=== PATIENT | female | born 1980 | race Caucasian/White ===

== ENCOUNTER 2022-03-02 17:41 | Inpatient (IN) | payer BC ==
[2022-03-02 17:45] VITALS: BMI 38.5
[2022-03-02] MEDS ORDERED: ACETAMINOPHEN 325 MG TABLET (FP) PO ONE (18:40)
[2022-03-02] MEDS ORDERED: ONDANSETRON 4 MG/2 ML VIAL IVPUSH ONE ×2 (18:45→21:34)
[2022-03-02] MEDS ORDERED: ONDANSETRON 4 MG/2 ML VIAL ONE ×2 (19:04→21:35)
[2022-03-02] MEDS ORDERED: ACETAMINOPHEN INJECTION 100 ML IVPB ONE (19:04)
[2022-03-02] MEDS ORDERED: ACETAMINOPHEN 1000 MG/100 ML BAG IVPB ONE (19:05)
[2022-03-02 19:26] LABS: BASO % 0.2 % (0-2.0); EOS % 0.2 % (0-4.5); HEMATOCRIT 38.6 % (32.4-45.2); LYMPH % 9.9 % (8-40); MCH 28.8 pg (25.7-33.7); MCHC 33.7 g/dl (32.0-36.0); MEAN CELL VOLUME 85.6 fl (80-96); MEAN PLT VOLUME 7.3 fl (7.5-11.1); MONO % 2.4 % (3.8-10.2); NEUT % 87.3 % (42.8-82.8); PLATELET COUNT 278 10^3/uL (134-434); RBC 4.51 M/mm3 (3.60-5.2); RDW 14.4 % (11.6-15.6); WHITE BLOOD COUNT 13.2 K/mm3 (4.0-10.0)
[2022-03-02 19:31] LABS: EPI CELLS 10 /uL (0-25.1); HYALINE CASTS 2 /uL (0-3.1); URINE APPEARANCE CLEAR; URINE BACTERIA 2821 /uL (0-1359); URINE BILIRUBIN NEGATIVE (NEGATIVE); URINE COLOR YELLOW; URINE GLUCOSE (UA) NEGATIVE (NEGATIVE); URINE KETONE 1+ (NEGATIVE); URINE LEUK ESTERASE NEGATIVE (NEGATIVE); URINE NITRITE NEGATIVE (NEGATIVE); URINE PROTEIN NEGATIVE (NEGATIVE)
[2022-03-02] MEDS ORDERED: KETOROLAC TROMETHAMINE 15 MG/ML VIAL IVPUSH ONE ×2 (19:40→21:30)
[2022-03-02 19:44] LABS: CALCIUM 8.8 mg/dL (8.5-10.1)
[2022-03-02 19:45] LABS: ALBUMIN 4.1 g/dl (3.4-5.0); BLOOD UREA NITROGEN 14.6 mg/dL (7-18)
[2022-03-02 19:49] LABS: TOT PROT 7.6 g/dl (6.4-8.2)
[2022-03-02 19:50] LABS: BILIRUBIN,TOTAL 0.5 mg/dL (0.2-1)
[2022-03-02] MEDS ORDERED: KETOROLAC TROMETHAMINE 15 MG/ML VIAL ONE ×2 (19:58→21:35)
[2022-03-02] MEDS ORDERED: SODIUM CHLORIDE 0.9% 500 ML INFUS.BAG IV ONE (21:30)
[2022-03-02 22:27] LABS: URINE RBC 102.3 /uL (0-23.9); URINE WBC 3229.5 /uL (0-25.8)
[2022-03-02 22:28] LABS: URINE CRYSTALS FEW /hpf
[2022-03-02] MEDS ORDERED: CEFTRIAXONE 1 GM/50 ML BAG ONE (22:50)
[2022-03-03] MEDS ORDERED: SODIUM CHLORIDE 1,000 ML IV SCH (01:00)
[2022-03-03] MEDS ORDERED: ACETAMINOPHEN 1000 MG/100 ML BAG IVPB PRN (01:10)
[2022-03-03] MEDS ORDERED: POTASSIUM CHLORIDE ORAL LIQUID 20 MEQ/15 ML PO ONE (01:21)
[2022-03-03] MEDS ORDERED: KCL 10 MEQ IVPB 10 MEQ/100 ML INFUS.BAG IVPB ONE ×2 (01:56→03:39)
[2022-03-03] MEDS: KCL 10 MEQ IVPB 10 MEQ/100 ML INFUS.BAG IVPB SCH ×2 (02:03→03:47)
[2022-03-03] MEDS ORDERED: KETOROLAC TROMETHAMINE 15 MG/ML VIAL IVPUSH PRN (04:00)
[2022-03-03] MEDS ORDERED: TOPIRAMATE 25 MG TABLET ONE (06:38)
[2022-03-03] MEDS ORDERED: TOPIRAMATE 100 MG TABLET PO SCH ×3 (06:45→22:00)
[2022-03-03 07:28] LABS: HEMATOCRIT 33.9 % (32.4-45.2); HEMOGLOBIN 11.5 GM/dL (10.7-15.3); MCH 29.3 pg (25.7-33.7); MEAN CELL VOLUME 86.1 fl (80-96); MEAN PLT VOLUME 7.3 fl (7.5-11.1); PLATELET COUNT 232 10^3/uL (134-434); RBC 3.93 M/mm3 (3.60-5.2); RDW 14.1 % (11.6-15.6); WHITE BLOOD COUNT 9.8 K/mm3 (4.0-10.0)
[2022-03-03 07:48] LABS: CALCIUM 7.8 mg/dL (8.5-10.1)
[2022-03-03 07:49] LABS: BLOOD UREA NITROGEN 10.2 mg/dL (7-18)
[2022-03-03 07:51] LABS: PHOSPHOROUS 2.6 mg/dL (2.5-4.9)
[2022-03-03 07:53] LABS: BILIRUBIN,TOTAL 0.3 mg/dL (0.2-1); CREATININE 0.7 mg/dL (0.55-1.3); TOT PROT 6.3 g/dl (6.4-8.2)
[2022-03-03 07:54] LABS: ALBUMIN 3.2 g/dl (3.4-5.0)
[2022-03-03] MEDS ORDERED: KETOROLAC TROMETHAMINE 15 MG/ML VIAL ONE (09:57)
[2022-03-03] MEDS ORDERED: ENOXAPARIN NA (PORCINE) 40 MG/0.4 ML DISP.SYRIN SQ ONE (09:57)
[2022-03-03] MEDS ORDERED: buPROPion HCL 100 MG TABLET ONE (09:58)
[2022-03-03] MEDS ORDERED: CEFTRIAXONE 1 GM/50 ML BAG ONE (09:58)
[2022-03-03] MEDS ORDERED: ENOXAPARIN NA (PORCINE) 40 MG/0.4 ML DISP.SYRIN SQ SCH (10:00)
[2022-03-03] MEDS ORDERED: CEFTRIAXONE 1 GM in DEXTROSE 5%-WATER - 50 ML IVPB SCH (10:00)
[2022-03-03 12:29] VITALS: BP 136/80; PULSE 88; RESP 20; TEMP 98.8
== END 2022-03-03 13:14 | disposition home or self-care (01) | DRG 694 ==
LOC: JER 17:41 → JERBED 22:43
PROVIDERS: ADMIT Internal Medicine; ATTEND Internal Medicine
DX: N13.30 Unspecified hydronephrosis (principal); E87.1 Hypo-osmolality and hyponatremia; N20.9 Urinary calculus, unspecified; F41.9 Anxiety disorder, unspecified; R11.2 Nausea with vomiting, unspecified; E66.9 Obesity, unspecified; Z68.38 Body mass index [BMI] 38.0-38.9, adult; D50.9 Iron deficiency anemia, unspecified; E87.6 Hypokalemia; Z98.84 Bariatric surgery status
CPT/HCPCS: 36415; 74176-TC; 80053; 81003; 82962; 83036; 83735; 84100; 84703; 85025; 85027; 87086; 93005; 93010; 99285-25; C9803-CS; G0378; U0003; U0005